=== PATIENT | female | born 1985 ===

== ENCOUNTER 2019-10-06 09:46 | Inpatient (IN) | payer OTHER ==
[2019-10-06] MEDS ORDERED: fentaNYL 100 MCG/2 ML INJ IV PRN (10:26)
[2019-10-06] MEDS ORDERED: AMPICILLIN/NS 2 GM/100 ML 2 GM/100 ML BAG IV ONE (10:26)
[2019-10-06] MEDS ORDERED: ePHEDrine SULFATE 50 MG/1 ML INJ IV PRN (10:26)
[2019-10-06] MEDS ORDERED: LIDOCAINE (2%) 20 MG/1 ML VIAL 20 ML MDV INFILTRATI ONE (10:26)
--- NOTE | 2019-10-06 10:33 | History and Physical Report ---
History of Present Illness Date of examination: 10/06/19 Date of admission: Contractions Chief complaint: Contractions History of present illness: 33 year old presents to L&D with contractions. She denies LOF or VB. She reports active FM. Patient states she received care at [facility] but does not have records. States she only made a visit or two. EDC 10/17/2019. No records are available. labs have been drawn upon admission. Patient states she has had an uneventful . Past History Past Medical History: other (obesity) Past Surgical History: no surgical history [employer] History: denies: chlamydia, fibroids, gonorrhea, hepatitis B, hepatitis C, herpes, HIV, syphilis Family/Genetic History: none Social history: lives with family, full code. denies: smoking, alcohol abuse, prescription drug abuse, IV drug use - Obstetrical History Expected Date of Delivery: 10/17/19 Actual Gestation: 38 Week(s) 3 Day(s) : 3 Para: 2 Hx # Term Pregnancies: 2 Number of Pregnancies: 0 Spontaneous Abortions: 0 Induced : 0 Number of Living Children: 2 Medications and Allergies Allergies Allergy/AdvReac Type Severity Reaction Status Date / Time No Known Allergies Allergy Unverified 10/06/19 10:47 Active Meds: Active Medications Ephedrine Sulfate (Ephedrine Sulfate) 10 mg IV Q2M PRN PRN Reason: Hypotension Fentanyl (Sublimaze) 100 mcg IV Q2H PRN PRN Reason: Pain,Severe (7-10) LABOR PAIN Oxytocin/Sodium Chloride (Pitocin/Ns 20 Unit/1000ml Drip) 20 units in 1,000 mls @ 125 mls/hr IV DIRECT SASHA Lactated Ringer's (Lactated Ringers) 1,000 mls @ 125 mls/hr IV DIRECT SASHA Ampicillin Sodium (Ampicillin/Ns 2 Gm/100 Ml) 2 gm in 100 mls @ 100 mls/hr IV ONCE ONE; Protocol Stop: 10/06/19 11:25 Lidocaine (Xylocaine 2%) 20 ml INFILTRATI ONCE ONE Stop: 10/06/19 10:27 Review of Systems All systems: negative (contractions) - Vital Signs Vital signs: Vital Signs Pulse BP 74 106/60 10/06/19 09:57 10/06/19 09:57 Temp Pulse Resp BP Pulse Ox 98.2 F 65 18 114/59 99 10/06/19 10:20 10/06/19 10:29 10/06/19 10:20 10/06/19 10:22 10/06/19 10:29 - Physical Exam Abdomen: Positive: normal appearance, soft. Negative: distention, tenderness, guarding, rigidity Genitourinary (Female): Positive: normal external genitalia, normal perenium. Negative: perineal/vulvar lesions Vagina: Positive: normal moisture Uterus: Positive: enlarged. Negative: tender Anus/Rectum: Positive: normal perianal skin Extremities: Positive: normal - Obstetrical FHR: category 2 Uterine Contraction Monitor Mode: External Cervical Dilatation: 8 Cervical Effacement Percentage: 100 station: -1 Uterine Contraction Pattern: Regular Uterine Contraction Intensity: Moderate Results Result Diagrams: 10/06/19 10:26 All other labs normal. Assessment and Plan A: Term . Active labor. GBS unknown. No records available. P: Admit. EFM. GBS prophylaxis. Anticipate .
[2019-10-06] MEDS ORDERED: FLU VACC QUAD 2019-20 (3 YR UP)/PF 60 MCG/0.5 ML SYRINGE IM ONE (10:46)
[2019-10-06] MEDS ORDERED: OXYTOCIN 20 UNIT/1000ML DRIP 20 UNITS/1,000 ML BAG IV SCH (11:00)
[2019-10-06] MEDS ORDERED: LACTATED RINGERS 1,000 ML IV SCH (11:00)
[2019-10-06] MEDS ORDERED: ONDANSETRON 4 MG/2 ML INJ IV ONE (11:16)
[2019-10-06] MEDS ORDERED: ONDANSETRON 4 MG/2 ML INJ ONE (11:18)
[2019-10-06 11:46] LABS: Hemoglobin 12.1 gm/dl (10.1-14.3); Mean Corpuscular HGB Conc 34 % (30-34); Mean Corpuscular Volume 91 fl (79-97); Platelet Count 276 K/mm3 (140-440); Red Blood Count 3.95 M/mm3 (3.65-5.03); Red Cell Distribution Width 14.1 % (13.2-15.2)
[2019-10-06 13:35] LABS: Hepatitis C Virus Antibody Non-Reactive (NonReactive)
[2019-10-06] MEDS ORDERED: AMPICILLIN/NS 1 GM/50 ML 1 GM/50 ML BAG IV SCH (14:32)
[2019-10-06 15:32] LABS: Amphetamine Screen,Urine PRESUMPTIVE NEGATIVE; Benzodiazepines Screen,Urine PRESUMPTIVE NEGATIVE; Cannabinoid Screen,Urine PRESUMPTIVE NEGATIVE; Cocaine Screen,Urine PRESUMPTIVE NEGATIVE; Methadone Screen,Urine PRESUMPTIVE NEGATIVE; Opiate Screen,Urine PRESUMPTIVE NEGATIVE
--- NOTE | 2019-10-06 18:42 | Procedure Note ---
OB Delivery Note - Delivery Date of Delivery: 10/06/19 Surgeon: BREEZY WINCHESTER Estimated blood loss: 200cc - Vaginal Delivery presentation: vertex Delivery position: OA Delivery induction: none Delivery monitor: external FHT, external uterine Delivery placenta: spontaneous Delivery cord: 3 umbilical vessels Episiotomy: none Anesthesia: none Delivery comments: Spontaneous vaginal delivery at 12:44 of liveborn male weighing 3.25 kg over intact perineum with apgars of 8/9. Baby placed skin to skin with mom immediately after . Baby bulb suctioned and dried. 3 vessel cord double clamped and cut and baby taken to radiant warmer for further evaluation. Spontaneous delivery of intact placenta and membranes by moon mechanism. Placenta to path. EBL 200 cc. Pitocin to IV fluids after delivery of placenta. Fundus firm and midline. Vaginal sweep negative. No lacerations noted. Sponge count correct. Mother and baby stable.
[2019-10-06] MEDS ORDERED: ONDANSETRON 4 MG/2 ML INJ IV PRN (23:49)
[2019-10-06] MEDS ORDERED: PROMETHAZINE 25 MG RECT SUPP PR PRN (23:49)
[2019-10-06] MEDS ORDERED: LANOLIN/ZINC/DIMETHICONE (LANSINOH) 7 GM TP PRN (23:49)
[2019-10-06] MEDS ORDERED: MAGNESIUM HYDROXIDE (MOM) ORAL LIQD UDC PO PRN (23:49)
[2019-10-06] MEDS ORDERED: ACETAMINOPHEN 325 MG TAB PO PRN (23:49)
[2019-10-06] MEDS ORDERED: WITCH HAZEL/ GLYCERIN PAD TP PRN (23:49)
[2019-10-06] MEDS ORDERED: PROMETHAZINE 25 MG TAB PO PRN (23:49)
[2019-10-06] MEDS ORDERED: diphenhydrAMINE 25 MG CAP PO PRN (23:49)
[2019-10-07] MEDS: IBUPROFEN 600 MG TAB PO SCH ×4 (00:22→21:02)
--- NOTE | 2019-10-07 13:47 | Progress Note ---
Assessment and Plan A: day 1 S/P . P: Anticipate discharge home tomorrow when baby is able to go. Subjective - Subjective Date of service: 10/07/19 Principal diagnosis: day 1 S/P Interval history: day 1 S/P . Doing well. Patient reports: appetite normal, voiding normally, pain well controlled, flatus, ambulating normally, no dizzy ambulation, no nauseated : doing well Objective - Vital Signs Latest vital signs: Vital Signs Temp Pulse Resp BP BP 10/07/19 08:11 97.7 F 79 18 103/56 10/07/19 04:30 98.6 F 61 18 115/74 10/07/19 01:52 98.6 F 70 18 107/69 10/06/19 20:00 98.7 F 69 18 99/68 10/06/19 16:05 98.2 F 78 20 104/56 10/06/19 15:04 65 125/74 10/06/19 14:59 72 117/65 10/06/19 14:35 67 111/58 10/06/19 14:05 67 120/68 Intake and Output 10/06/19 10/07/19 10/07/19 23:59 07:59 15:59 Intake Total 1020 200 120 Balance 1020 200 120 Intake: Oral 1020 200 120 Other: Total, Intake Amount 480 200 120 Voiding Method Toilet # Voids Void 1 1 1 - Exam Cardiovascular: Present: Regular rate, Normal S1, Normal S2, No murmurs Lungs: Present: Clear to auscultation Abdomen: Present: normal appearance, soft. Absent: distention, tenderness, guarding, rigidity Uterus: Present: normal, firm, fundal height below umbilicus. Absent: bogginess, tenderness Extremities: Present: normal. Absent: tenderness, edema
[2019-10-07 16:52] LABS: Hematocrit 29.8 % (30.3-42.9)
[2019-10-08] MEDS: IBUPROFEN 600 MG TAB PO SCH (05:31)
--- NOTE | 2019-10-08 07:04 | Progress Note ---
Assessment and Plan A: day 2 S/P . P: Discharge patient home today. Discussed discharge instructions with patient. Advised pt. to avoid IC, lifting, and housework. Advised pt. to continue taking her vitamins and iron supplements at home. Advised pt. to follow up at [facility] in 4-6 weeks for exam. Patient voiced u nderstanding of all instructions. Subjective - Subjective Date of service: 10/08/19 Principal diagnosis: day 2 S/P Interval history: day 2 S/P . Doing well. Patient reports: appetite normal, voiding normally, pain well controlled, flatus, ambulating normally, no dizzy ambulation, no nauseated [place]: doing well Objective - Vital Signs Latest vital signs: Vital Signs Temp Pulse Resp BP BP Pulse Ox 10/07/19 23:11 98.5 F 57 L 18 125/63 97 10/07/19 17:30 98.2 F 84 20 10/07/19 17:00 98 F 72 18 118/58 10/07/19 08:11 97.7 F 79 18 103/56 Intake and Output 10/07/19 10/07/19 10/08/19 15:59 23:59 07:59 Intake Total 120 660 400 Balance 120 660 400 Intake: Oral 120 360 400 Intake, Free Water 300 Other: Total, Intake Amount 120 360 200 # Voids Void 1 1 1 - Exam Cardiovascular: Present: Regular rate, Normal S1, Normal S2 Lungs: Present: Clear to auscultation Abdomen: Present: normal appearance, soft. Absent: distention, tenderness, guarding, rigidity Uterus: Present: normal, firm, fundal height below umbilicus. Absent: bogginess, tenderness Extremities: Present: normal. Absent: tenderness, edema - Labs Labs: Abnormal lab results 10/07/19 Range/Units 16:23 Hgb 10.0 L (10.1-14.3) gm/dl Hct 29.8 L D (30.3-42.9) %
--- NOTE | 2019-10-08 07:07 | Discharge Summary ---
Providers - Providers Date of Admission: 10/06/19 11:09 Date of discharge: 10/08/19 Attending physician: HOLGER CUELLAR MD Primary care physician: SUMMER MARTÍNEZ MD Hospitalization Reason for admission: active labor Delivery: Episiotomy: none Laceration: none Other procedures: none complications: none Discharge diagnosis: IUP at term delivered [place] baby: male Condition at discharge: Good Disposition: DC-01 TO HOME OR SELFCARE - Discharge Diagnoses (1) Term delivered Status: Acute (2) Anemia Status: Acute Plan - Provider Discharge Summary Activity: routine, no sex for 6 weeks, no heavy lifting 4 weeks, no strenuous exercise Diet: routine Instructions: routine Additional instructions: Continue taking your vitamins and iron supplements at home. Call your doctor immediately for: * Fever > 100.5 * Heavy vaginal bleeding ( >1 pad per hour) * Severe persistent headache * Shortness of breath * Reddened, hot, painful area to leg or breast - Follow up plan Follow up: PRIMARY CAREMD [Primary Care Provider] - 6 Weeks
[2019-10-08] MEDS ORDERED: FERROUS SULFATE 325 MG TAB PO SCH (10:00)
[2019-10-09 11:50] VITALS: BP 107/61
== END 2019-10-08 15:00 | disposition home or self-care (01) | DRG 807 ==
LOC: TRG 09:46 → APU 09:47 → TRG 11:08 → LD 11:09 → OB 15:39
PROVIDERS: ADMIT Obstetrics & Gynecology; ATTEND Obstetrics & Gynecology
PROC: 10E0XZZ Delivery of Products of Conception, External Approach (ICD-10-PCS; principal; 2019-10-06)
DX: O99.214 Obesity complicating childbirth (principal); Z37.0 Single live birth; E66.9 Obesity, unspecified; O90.81 Anemia of the puerperium; D64.9 Anemia, unspecified; Z3A.38 38 weeks gestation of pregnancy
CPT/HCPCS: 36415; 80307; 83036; 85014; 85018; 85027; 86592; 86706; 86762; 86803; 86850; 86900; 86901; 87806; 88307; 90686; G0378; A6250; J0290; J2405; J2590; J3010; J7120